=== PATIENT | male | born 1975 ===

== ENCOUNTER 2018-04-30 17:42 | Emergency (ER) | payer OTHER ==
[~2018-04-30] VITALS: Ht 195.6 cm; Wt 117.9 kg
== END 2018-04-30 23:01 | disposition home or self-care (01) ==
LOC: ER 17:42
DX: R10.11 Right upper quadrant pain (principal)

== ENCOUNTER 2021-04-29 01:15 | Emergency (ER) | payer OTHER ==
[~2021-04-29] VITALS: Ht 193 cm; Wt 121.6 kg
[2021-04-29] MEDS ORDERED: NAPROXEN375 MG PO (02:24)
[2021-04-29] MEDS ORDERED: INTESTINEX680 M2 PO (02:25)
[2021-04-29] MEDS ORDERED: AMOX1TAB5 PO (02:25)
== END 2021-04-29 02:47 | disposition home or self-care (01) ==
LOC: ER 01:15
DX: S61.422A Laceration with foreign body of left hand, initial encounter (principal); W26.0XXA Contact with knife, initial encounter; Y93.89 Activity, other specified; Y92.098 Other place in other non-institutional residence as the place of occurrence of the external cause; Y99.8 Other external cause status

== ENCOUNTER 2021-05-10 08:56 | Emergency (ER) | payer OTHER ==
[~2021-05-10] VITALS: Ht 193 cm; Wt 121.6 kg
[~2021-05-10 08:56] MED LIST: AMOX1TAB5 PO; INTESTINEX680 M2 PO; NAPROXEN375 MG PO
[2021-05-10] MEDS ORDERED: HIBICLENS118 ML TOP (11:45)
[2021-05-10] MEDS ORDERED: MUPIROCIN22 GM TOP (11:45)
[2021-05-10] MEDS ORDERED: LEVOFLOXACIN500 MG PO (11:45)
== END 2021-05-10 12:26 | disposition home or self-care (01) ==
LOC: ER 08:56
DX: L08.89 Other specified local infections of the skin and subcutaneous tissue (principal); Z48.02 Encounter for removal of sutures